=== PATIENT | female | born 1985 | race African-American/Black ===

== ENCOUNTER 2022-04-01 08:23 | Emergency (ER) | payer BC ==
[~2022-04-01] VITALS: Ht 160 cm; Wt 52.0 kg
[2022-04-01 08:30] VITALS: BP 105/58
[2022-04-01] MEDS ORDERED: ENTE0.5T11 PO (08:34)
[2022-04-01] MEDS ORDERED: PREDNISONE 20MG TABLET PO ONE (09:00)
[2022-04-01] MEDS ORDERED: DIPHENHYDRAMINE 25MG CAPSULE PO ONE (09:00)
[2022-04-01] MEDS ORDERED: FAMOTIDINE 20MG TABLET PO ONE (09:00)
[2022-04-01] MEDS ORDERED: FAMO-135 MT (09:31)
[2022-04-01] MEDS ORDERED: DIPH25CA83 MT (09:31)
[2022-04-01] MEDS ORDERED: P20 MT (09:31)
== END 2022-04-01 10:02 | disposition home or self-care (01) ==
LOC: ER 08:23
DX: R21 Rash and other nonspecific skin eruption (principal); Z86.19 Personal history of other infectious and parasitic diseases; Z98.890 Other specified postprocedural states; Z88.0 Allergy status to penicillin
CPT/HCPCS: 99284; J7512; Q0163